=== PATIENT | female | born 1995 | race Caucasian/White ===

== ENCOUNTER 2023-02-14 13:44 | Emergency (ER) | payer MEDICAID ==
[~2023-02-14] VITALS: Ht 180.3 cm; Wt 58.0 kg
[2023-02-14 13:58] VITALS: O2SAT 100
[2023-02-14] MEDS ORDERED: CEFTRIAXONE SODIUM 500 MG/VIAL IM ONE (15:15)
[2023-02-14] MEDS ORDERED: RALT400T PO ×3 (15:16→15:41)
[2023-02-14] MEDS ORDERED: DOXY100T2 MT (15:43)
[2023-02-14] MEDS ORDERED: LIDOCAINE HCL/PF 1% 10 MG/ML 5ML VIAL INFIL ONE (15:45)
[2023-02-14 16:23] VITALS: BP 111/63; PULSE 68; RESP 18; TEMP 98
[2023-02-17 07:08] LABS: CHLAMYDIA TRACHOMATIS NAA Negative (Negative); NEISSERIA GONORRHOEAE NAA Negative (Negative)
== END 2023-02-14 16:25 | disposition home or self-care (01) ==
LOC: ER 13:44
DX: Z11.3 Encounter for screening for infections with a predominantly sexual mode of transmission (principal)
CPT/HCPCS: 87491; 87591; 96372; 99283; J0696; J3490; Z7610 ×2

== ENCOUNTER 2023-09-20 17:56 | Emergency (ER) | payer MEDICAID ==
[~2023-09-20] VITALS: Ht 182.9 cm; Wt 66.0 kg
[~2023-09-20 17:56] MED LIST: DOXY100T2 MT; RALT400T PO
[2023-09-20 18:03] VITALS: O2SAT 97
[2023-09-21] MEDS ORDERED: IBUP-2029 MT (00:25)
[2023-09-21] MEDS ORDERED: T3 PO (00:25)
[2023-09-21] MEDS ORDERED: AMOX-494 MT (00:25)
[2023-09-21 01:09] VITALS: BP 128/76; PULSE 78; RESP 18; TEMP 98
== END 2023-09-21 01:15 | disposition home or self-care (01) ==
LOC: ER 17:56
DX: K08.89 Other specified disorders of teeth and supporting structures (principal); F32.9 Major depressive disorder, single episode, unspecified; Z79.899 Other long term (current) drug therapy
CPT/HCPCS: 99283

== ENCOUNTER 2023-11-07 04:46 | Emergency (ER) | payer MEDICAID ==
[~2023-11-07] VITALS: Ht 180.3 cm; Wt 56.0 kg
[~2023-11-07 04:46] MED LIST changes: +AMOX-494 MT; +IBUP-2029 MT; +T3 PO
[2023-11-07 04:51] VITALS: BP 117/75; RESP 20; TEMP 98.7; O2SAT 99
[2023-11-07 04:52] VITALS: PULSE 90; O2SAT 100
[2023-11-07] MEDS ORDERED: AMOX1TAB16 PO (05:31)
[2023-11-07] MEDS ORDERED: T3 PO (05:31)
[2023-11-07] MEDS ORDERED: IBUP-2030 PO (05:31)
[2023-11-07] MEDS: ACETAMINOPHEN WITH CODEINE 300/30MG TABLET PO ONE (06:24)
== END 2023-11-07 06:27 | disposition home or self-care (01) ==
LOC: ER 04:46
DX: K04.7 Periapical abscess without sinus (principal); F32.A Depression, unspecified; Z79.899 Other long term (current) drug therapy
CPT/HCPCS: 99283

== ENCOUNTER 2023-11-26 12:33 | Emergency (ER) | payer MEDICAID ==
[~2023-11-26] VITALS: Ht 177.8 cm; Wt 60.0 kg
[~2023-11-26 12:33] MED LIST changes: +AMOX1TAB16 PO; +IBUP-2030 PO
[2023-11-26 12:35] VITALS: O2SAT 99
[2023-11-26] MEDS: ONDANSETRON HCL 4MG/2ML INJ IV ONE (14:15)
[2023-11-26] MEDS: KETOROLAC 30MG/ML VIAL IV ONE (14:15)
[2023-11-26] MEDS: AMPICILLIN SOD/SULBACTAM NA 3 G in SODIUM CHLORIDE 0.9% 100 ML IV STA (14:24)
[2023-11-26 14:38] LABS: HEMATOCRIT. 43.8 % (36.0-48.0); HEMOGLOBIN. 14.8 g/dL (12.0-16.0); MEAN CORPUSCULAR HEMOGLOBIN 31.8 pg (28.0-32.0); MEAN CORPUSCULAR HGB CONC 33.7 g/dL (31.0-37.0); MEAN CORPUSCULAR VOLUME 94.4 fL (81.0-99.0); MEAN PLATELET VOLUME 9.2 fl (7.4-10.4); PLATELET 239 x1000/uL (130-400); RED BLOOD CELL COUNT 4.64 mill/uL (4.2-5.4); RED CELL DISTRIBUTION WIDTH 12.7 % (11.6-14.6)
[2023-11-26 14:47] LABS: CHLORIDE 106 mEq/L (98-107); POTASSIUM 4.1 mEq/L (3.5-5.1); SODIUM 138 mEq/L (136-145)
[2023-11-26 14:48] LABS: CARBON DIOXIDE 27 mEq/L (21-32); DIFFERENTIAL COMMENT 1
[2023-11-26 14:49] LABS: CALCIUM 9.4 mg/dL (8.7-10.4)
[2023-11-26 14:53] LABS: CREATININE 0.7 mg/dL (0.6-1.0); GLUCOSE 95 mg/dL (70-105)
[2023-11-26 14:54] LABS: UREA NITROGEN BLOOD 7 mg/dL (9-23)
[2023-11-26 14:59] LABS: HCG SCREEN NEGATIVE
[2023-11-26 15:57] LABS: PLATELET ESTIMATE NORMAL
[2023-11-26 16:51] VITALS: BP 108/70; PULSE 78; RESP 18; TEMP 37.11408; O2SAT 98
[2023-11-26] MEDS ORDERED: IOHEXOL-300 100 ML BOTTLE ONE (22:59)
== END 2023-11-26 17:06 | disposition home or self-care (01) ==
LOC: ER 12:39
DX: M27.3 Alveolitis of jaws (principal); Z79.899 Other long term (current) drug therapy
CPT/HCPCS: 99285; 96365; 70487; 96375; 80048; 81025; 84703; 85025; 36415; Q9967; J0295; J1885; J2405; J7050